=== PATIENT | female | born 1990 | race Native Hawaiian/Other Pacific Islander ===

== ENCOUNTER 2023-11-19 07:45 | Emergency (ER) | payer SELFPAY ==
[2023-11-19] MEDS ORDERED: ETOMIDATE 20 MG/10 ML VIAL IV ONE (07:46)
[2023-11-19] MEDS ORDERED: ROCURONIUM 50 MG/5 ML VIAL IV ONE (07:46)
[2023-11-19 08:13] LABS: Absolute Eosinophils 0.1 K/uL (0-0.5); Absolute Lymphocytes (CBC) 2.1 K/uL (0.7-4.9); Absolute Monocytes 0.5 K/uL (0.1-1.3); Absolute Neutrophil 2.8 K/uL (1.8-8.0); Basophils % 0.5 % (0-1.3); Eosinophils % 1.2 % (0-4.4); Hematocrit 40.2 % (36.0-45.0); Hemoglobin 13.6 g/dL (12.0-15.0); Lymphocytes % 37.9 % (15.3-44.8); MCH 30.2 pg (27.0-35.0); MCHC 33.9 g/dL (32.0-36.0); MCV 89.2 fL (80-100); Monocytes % 8.9 % (3.3-12.3); Neutrophils % 51.5 % (41.7-73.7); Nucleated Red Blood Cells % 0.1 % (0-0); Platelets 285 thou/uL (152-406); RBC Red Blood Cell Count 4.51 M/uL (3.86-4.86); Red Cell Distribution Width 13.1 % (12.1-15.2)
[2023-11-19 08:16] LABS: PT Prothrombin Time 11.1 SECONDS (9.4-12.5); PTT, Activated Partial Thromb 28.3 SECONDS (24.3-36.9); Protime INR 1.01
[2023-11-19 08:39] LABS: ALT/SGPT 38 U/L (13-56); Albumin 3.9 g/dL (3.4-5.0); Alkaline Phosphatase 83 U/L (45-117); Anion Gap 9.3 mEq/L (5.0-15.0); BUN Blood Urea Nitrogen 13 mg/dL (7-18); Bicarbonate 22 mEq/L (21-32); Bilirubin Total 0.3 mg/dL (0.2-1.0); Globulin 3.9 g/dL (2.3-3.5); Glomerular Filtration Rate 91 ml/min (=/>90); Glucose Level 108 mg/dL (74-106); Protein, Total 7.8 g/dL (6.4-8.2); Sodium Level 138 mEq/L (136-145)
[2023-11-19 08:42] LABS: AST/SGOT 24 U/L (15-37); Bilirubin Direct < 0.2 mg/dL (0-0.2); Bilirubin Indirect, Calculated 0.1 mg/dL (0.2-0.8); Potassium 3.3 mEq/L (3.5-5.1)
--- NOTE | 2023-11-19 08:52 | RAD REPORT ---
EXAM DESCRIPTION: RAD - Abdomen Single View - 11/19/2023 8:28 am CLINICAL HISTORY: Device placement nasogastric tube placement FINDINGS: Tip of a nasogastric tube lies 7 centimeters into the stomach
--- NOTE | 2023-11-19 08:53 | RAD REPORT ---
EXAM DESCRIPTION: [place] Single View11/19/2023 8:28 am CLINICAL HISTORY: Device placement endotracheal tube placement IMPRESSION: The most recent film demonstrates an endotracheal tube with its tip 3 centimeters above the level of the aortic arch
[2023-11-19 09:03] LABS: Sqamous Epithelial <5 /HPF (None Seen); Urine Bacteria None Seen /HPF (<20); Urine Bilirubin NEGATIVE (Negative); Urine Blood Negative (Negative); Urine Clarity Clear (Clear); Urine Color Light-Yellow (Yellow); Urine Culture Reflex Order NOT NEEDED; Urine Glucose NEGATIVE (Negative); Urine Ketones 1+ (Negative); Urine Microscopic Reflex YN ORDER UMIC; Urine Mucus 1+ /HPF (None Seen); Urine Nitrite NEGATIVE (Negative); Urine Protein TRACE (Negative); Urine RBC <5 /HPF (None Seen); Urine Urobilinogen 1+ (Normal); Urine WBC <5 /HPF (<5)
--- NOTE | 2023-11-19 09:23 | RAD REPORT ---
EXAM DESCRIPTION: CT - Head Brain Wo Cont - 11/19/2023 8:59 am CLINICAL HISTORY: Unresponsive COMPARISON: none TECHNIQUE: Computed axial tomography of the head was obtained. IV contrast was not requested. All CT scans are performed using dose optimization technique as appropriate and may include automated exposure control or mA/KV adjustment according to patient size. FINDINGS: An intracranial bleed is not seen The ventricles are normal in caliber No significant hypodense areas within the brain visualized No extra-axial fluid collection is noted. Fluid within the sinuses/ mastoids is not seen IMPRESSION: No acute intracranial abnormality is seen If patient's symptoms persist MRI of the brain would be recommended
[2023-11-19 09:46] LABS: Barbiturates NEGATIVE (NEGATIVE); Benzodiazepines NEGATIVE (NEGATIVE); Cocaine NEGATIVE (NEGATIVE); METHAMPHETAM POSITIVE (NEGATIVE); Methadone NEGATIVE (NEGATIVE); Opiates NEGATIVE (NEGATIVE); Phencyclidine NEGATIVE (NEGATIVE); THC Cannibis NEGATIVE (NEGATIVE)
--- NOTE | 2023-11-19 09:51 | EDPHYS ---
Physician Documentation [facility] Name: Ledy Lewis Age: 33 yrs Sex: Female : 1990 Arrival Date: 11/19/2023 Time: 07:45 Bed 4 Private MD: ED Physician Aamir Pierre HPI: 11/18 07:48 This 33 yrs old Female presents to ER via Unassigned with complaints of ec2 unresponsive. 07:48 Patient arrives today unresponsive. Patient reportedly had had several alcoholic ec2 beverages as well as benzodiazepine last night. Found on the ground today, unresponsive, EMS reports to give the patient Narcan 2 mg IN and 2 mg IV with no response. History of opiate abuse as well.. Historical: - Allergies: 07:56 Unable to obtain; ph - PMHx: 07:56 Unable to Obtain; ph - Immunization history:: Adult Immunizations unknown. - Infectious Disease History:: unable to obtain. - Social history:: Smoking status: unknown Patient uses alcohol. ROS: 07:48 Constitutional: as per hpi ec2 Exam: 07:48 Constitutional: GEN: NAD Head: atraumatic Eyes: Midrange pupils Ears: External ears ec2 are normal. CV: regular rate LUNGS: no respiratory distress ABD: non-distended SKIN: no evidence of rashes MSK: no evidence of trauma NEURO: Minimal response to painful stimuli Vital Signs: 07:30 BP 112 / 82; Pulse 89; Resp 10; Pulse Ox 100% on R/A; ph 08:01 BP 122 / 95; Pulse 88; Resp 18; Pulse Ox 100% on ETT vent; ph 08:35 Weight 65 kg; ph 09:47 BP 125 / 83; Pulse 62; Resp 16; Pulse Ox 100% on ETT vent; FiO2 40 %; nj1 10:49 BP 120 / 83; Pulse 62; Resp 16; Pulse Ox 100% on ETT vent; FiO2 40 %; nj1 Procedures: 07:59 Intubation: Intubated orally using # 4 Anais blade with 7.5 mm ETT. was successful ec2 on first attempt. Ventilated with ventilator. Tube secured with ETT haynes Placement verified by CXR, CO2 detector with (+) color change, auscultating bilateral breath sounds, Patient tolerated well. MDM: 07:47 Patient medically screened. ec2 07:48 Data reviewed: vital signs. ED course: Patient arrives today for unresponsive. ec2 Examination remarkable for unresponsive individual was minimally responsive to painful stimuli. My concern is for ability to protect airway, I subsequently decided to urgently intubate the patient. Patient intubated without any issue. Will obtain lab work, drug screen, CT scan of the head. Differential diagnosis includes substance abuse, anemia, electrolyte disturbances.. 08:11 ED course: Initial chest x-ray independently reviewed and interpreted by me, shows high ec2 riding ET tube, I moved with the ET tube from 21 cm to 24 cm in depth, repeat chest x-ray independently reviewed and interpreted by me, shows approximately 3 to 4 cm above the [place].. 08:29 ED course: EKG obtained, independently reviewed and interpreted by me, shows normal ec2 sinus rhythm, rate of 69, no acute ST segment elevations, intervals are nonconcerning.. 08:59 ED course: Tylenol level undetectable, metabolic profile is reassuring, LFTs ec2 nonactionable, CBC reassuring, undetectable, urine testing negative, chest x-ray shows ET tube approximately 3 cm above the aortic arch, abdominal x-ray shows appropriately placed NG tube. Pending CT scan of the head as well as urine drug screen . 09:49 ED course: Urine drug screen positive for methamphetamine. Currently have no ec2 capabilities for pulmonology, will transfer for vent management. 10:35 ED course: I discussed case with ICU physician at [facility] who ec2 agrees accept the patient for transfer. . 11/18 07:48 Order name: Acetaminophen; Complete Time: 08:58 ec2 11/18 07:48 Order name: Basic Metabolic Panel; Complete Time: 08:58 ec2 11/18 07:48 Order name: CBC with Diff; Complete Time: 08:58 ec2 11/18 07:48 Order name: ETOH Level; Complete Time: 08:58 ec2 11/18 07:48 Order name: Hepatic Function; Complete Time: 08:58 ec2 11/18 07:48 Order name: PT-INR; Complete Time: 08:58 ec2 11/18 07:48 Order name: Test, Urine; Complete Time: 08:58 ec2 11/18 07:48 Order name: Ptt, Activated; Complete Time: 08:58 ec2 07/07 07:48 Order name: Salicylate; Complete Time: 09:30 ec2 11/18 07:48 Order name: Urinalysis w/ reflexes; Complete Time: 09:13 ec2 11/18 07:48 Order name: Urine Drug Screen; Complete Time: 09:48 ec2 11/18 07:49 Order name: CXR XRAY; Complete Time: 08:58 eb 11/18 07:50 Order name: CT Head Brain wo Cont; Complete Time: 09:30 ec2 11/18 08:16 Order name: Abdomen Single View; Complete Time: 08:58 EDMS 11/18 07:48 Order name: EKG; Complete Time: 07:48 ec2 11/18 07:48 Order name: EKG - Nurse/Tech; Complete Time: 08:33 ec2 11/18 07:48 Order name: IV Saline Lock; Complete Time: 07:57 ec2 11/18 07:48 Order name: Labs collected and sent; Complete Time: 07:57 ec2 Administered Medications: 07:43 Drug: Etomidate IVP 20 mg IVP once Route: IVP; Site: left antecubital; ph 08:00 Follow up: Response: No adverse reaction ph 07:43 Drug: Rocuronium IVP 70 mg IVP once Route: IVP; Site: left antecubital; ph 08:00 Follow up: Response: No adverse reaction ph 07:43 Drug: NS 0.9% IV 1000 ml IV at 1 bolus Per protocol; 1000 mL bolus Route: IV; Rate: 1 ph bolus; Site: left antecubital; 09:00 Follow up: Response: No adverse reaction; IV Status: Completed infusion; IV Intake: ph 1000ml 08:20 Drug: Propofol IV 5 mcg/kg/min IV at calculated rate See Administration Instructions; ph Standard concentration 1000 mg / 100 mL; Recommended max rate 50 mcg/kg/min; Titrate 2 mcg/kg/min every 5 minutes to achieve goal (see titration policy); Goal parameter RASS score 0 to -2 Route: IV; Rate: calculated rate; Site: right wrist; 08:38 Follow up: Rate change 10 mcg/kg/min ph 08:45 Follow up: Rate change 15 mcg/kg/min ph 09:10 Follow up: Rate change 20 mcg/kg/min ph 09:55 Follow up: Rate change 100 bolus nj1 09:55 Follow up: Rate change 50 mcg/kg/min; Rate increased per Dr James instructions nj1 10:00 Follow up: Response: No adverse reaction; RASS: Light sedation (-2); IV Status: ph Infusion continued upon transfer 11:05 Follow up: Rate change 100 bolus nj1 11:40 Follow up: Rate change 100 bolus nj1 Disposition Summary: 11/19/23 09:50 Transfer Ordered Notes: Transfer Location: [facility] ec2 Reason: Higher level of care ec2 Condition: Stable ec2 Problem: new ec2 Symptoms: have improved ec2 Accepting Physician: transferring doc(11/19/23 12:04) eb Diagnosis - Acute respiratory failure ec2 - Suspected Drug Overdose ec2 Forms: - Medication Reconciliation Form ec2 - SBAR form ec2 Critical care time excluding procedures: 09:49 Critical care time: Bedside Care: 30 minutes, Consultation: 5 minutes. Total time: 35 ec2 minutes Signatures: Dispatcher [employer] Tejal Zepeda RN RN Arielle Souza Edwin, MD MD ec2 Jami Bill RN nj1 Corrections: (The following items were deleted from the chart) 07:49 07:48 ACETAMINOPHEN+C.LAB.BRZ ordered. EDMS EDMS 07:49 07:48 BASIC METABOLIC PANEL+C.LAB.BRZ ordered. EDMS EDMS 07:49 07:48 CBC+H.LAB.BRZ ordered. EDMS EDMS 07:49 07:48 ETHANOL+C.LAB.BRZ ordered. EDMS EDMS 07:49 07:48 HEPATIC FUNCTION+C.LAB.BRZ ordered. EDMS EDMS 07:49 07:48 PROTIME (+INR)+COAG.LAB.BRZ ordered. EDMS EDMS 07:49 07:48 Test, Urine+UC.LAB.BRZ ordered. EDMS EDMS 07:49 07:48 PTT, ACTIVATED+COAG.LAB.BRZ ordered. EDMS EDMS 07:49 07:48 SALICYLATE+C.LAB.BRZ ordered. EDMS EDMS 07:49 07:48 Urinalysis+U.LAB.BRZ ordered. EDMS EDMS 07:49 07:48 URINE DRUG SCREEN+UC.LAB.BRZ ordered. EDMS EDMS 07:51 07:51 Head Brain Wo Cont+CT.RAD.BRZ ordered. EDMS EDMS 09:29 07:48 Suicide Screening ([place]) ordered. ec2 nj1 10:13 09:49 ED course: Urine drug screen positive for methamphetamine. Currently have no ec2 capabilities for pulmonology, will transfer for ventilation requirement.. ec2 12:04 09:50 transferring doc ec2 eb
--- NOTE | 2023-11-19 09:51 | ER ---
Nurse's Notes [facility] Name: Ledy Lewis Age: 33 yrs Sex: Female : 1990 Arrival Date: 11/19/2023 Time: 07:45 Bed 4 Private MD: Diagnosis: Acute respiratory failure;Suspected Drug Overdose Presentation: 11/18 07:30 Ebola Screen: No symptoms or risks identified at this time. Initial Sepsis Screen: Does ph the patient meet any 2 criteria? No. Patient's initial sepsis screen is negative. Does the patient have a suspected source of infection? No. Patient's initial sepsis screen is negative. Risk Assessment: Do you want to hurt yourself or someone else? Patient reports no desire to harm self or others. Onset of symptoms was November 19, 2023. 07:30 Acuity: TONY 1 ph 07:52 Chief complaint: EMS states: Pt found unresponsive on bathroom floor by SO, last seen ph normal approx 2 am, hx of drug use, reports that she drank heavily and took Xanax last night, total 4 mg of Narcan given, VSS, BGL 122, pt minimally responsive to painful stimuli upon arrival to ED. Coronavirus screen: Vaccine status: unable to obtain. 07:52 Method Of Arrival: EMS: [facility] Triage Assessment: 07:35 General: Behavior is unresponsive. Pain: Unable to use pain scale. Patient is ph unresponsive. Neuro: Level of Consciousness is unresponsive, Oriented to none Pupils are PERRLA. Cardiovascular: Capillary refill < 3 seconds in bilateral fingers Patient's skin is warm and dry. Rhythm is sinus rhythm. Respiratory: Airway is patent Respiratory effort is shallow, Respiratory pattern is hypoventilation. GI: Abdomen is non-distended. Derm: Skin is normal, Skin temperature is cool. Historical: - Allergies: 07:56 Unable to obtain; ph - PMHx: 07:56 Unable to Obtain; ph - Immunization history:: Adult Immunizations unknown. - Infectious Disease History:: unable to obtain. - Social history:: Smoking status: unknown Patient uses alcohol. Screenin:43 [facility] ED Fall Risk Assessment (Adult) History of falling in the last 3 months, kc6 including since admission No falls in past 3 months (0 pts) Confusion or Disorientation Yes (5 pts) Intoxicated or Sedated Yes (3 pts) Impaired Gait No (0 pts) Mobility Assist Device Used No (0 pt) Altered Elimination No (0 pt) Score/Fall Risk Level 3 or more points = High Risk. Abuse screen: Denies threats or abuse. Denies injuries from another. Nutritional screening: No deficits noted. Tuberculosis screening: No symptoms or risk factors identified. Assessment: 08:01 General: SEE TRIAGE ASSESSMENT. ph 08:04 Reassessment: ET tube advanced to 24 at the teeth by Dr. Pierre. kc6 09:44 Reassessment:. Reassessment: Patient appears in no apparent distress at this time. nj1 Neuro: Level of Consciousness is unresponsive, Sedated. Respiratory: Airway via oral intubation. 09:44 GI: NGT in place, to suction. nj1 09:44 : [place] in place to gravity drainage. nj1 09:54 Reassessment: Pt exhibiting restlessness, eyes open. nj1 11:48 Reassessment: EMS here to transfer patient, report given to Néstor Trejo EMTP. nj1 Overdose: 08:01 [place] Suicide Severity Screening: "In the past month, have you wished you were kc6 or wished you could go to sleep and not wake up?" unable to obtain at this time as pt is unresponsive "In the past month, have you actually had any thoughts of killing yourself?" unable to obtain at this time as pt is unresponsive "In your lifetime, have you ever done anything, started to do anything, or prepared to do anything to end your life?" unable to obtain at this time as pt is unresponsive. Vital Signs: 07:30 BP 112 / 82; Pulse 89; Resp 10; Pulse Ox 100% on R/A; ph 08:01 BP 122 / 95; Pulse 88; Resp 18; Pulse Ox 100% on ETT vent; ph 08:35 Weight 65 kg; ph 09:47 BP 125 / 83; Pulse 62; Resp 16; Pulse Ox 100% on ETT vent; FiO2 40 %; nj1 10:49 BP 120 / 83; Pulse 62; Resp 16; Pulse Ox 100% on ETT vent; FiO2 40 %; nj1 Vitals: 08:01 Cardiac Rhythm Assessment Sinus rhythm. ph ED Course: 07:30 Arm band placed on. kc6 07:40 Maintain EMS IV. Dressing intact. Good blood return noted. Site clean \\T\\ dry. Gauge \\T\\ sheryl 6 site: 20G LAC. 07:43 Assisted provider with intubation using 7.5 mm ETT via oral route. ET tube secured at kc6 21cm at the teeth. Set up intubation tray. Intubated by Aamir Pierre MD Placement verified by CO2 detector w/ + color change, auscultating bilateral breath sounds, End-tidal CO2 montioring CXR, Patient tolerated well. 07:43 Inserted saline lock: 20 gauge in right hand, using aseptic technique. Blood collected. kc6 07:43 Patient has correct armband on for positive identification. Placed in gown. Bed in low kc6 position. Call light in reach. Side rails up X2. radiation monitor on. Pulse ox on. NIBP on. Warm blanket given. Pillow given. 07:47 Patient arrived in ED. ec2 07:47 Aamir Pierre MD is Attending Physician. ec2 07:50 NGT: inserted 16 Fr. via left nare. verified placement of air over stomach, verified kc6 return of gastric contents, Placement verified by X-ray, to intermittent suction. Returned gastric contents. Patient tolerated well. 07:52 Tejal Morales, RN is Primary Nurse. ph 07:56 Triage completed. ph 08:20 [place] cath inserted, using sterile technique, 18 Fr., by wv, balloon inflated, to kc6 gravity drainage, clamped. urine specimen collected. returned clear yellow urine. Patient tolerated well. 08:29 CXR XRAY In Process Unspecified. EDMS 08:30 Abdomen Single View In Process Unspecified. EDMS 09:01 CT Head Brain wo Cont In Process Unspecified. EDMS 09:50 initiated a transfer with Nga from the [facility] Transfer center. eb 10:14 connected the electrician underground physicians and surgeons for [facility] with Dr. Pierre for patient eb transfer consultation. 10:17 administrative approval given by Nga Gao Rn/ patient has been accepted to [facility] rom 210/ Dr. Luis Hansen as accepted the patient in transfer/ report to be called to [phone]. 12:04 Patient transferred, IV remains in place. kc6 Restraints: 09:15 Non-Violent Restraint: Order obtained. Initiated on November 19, 2023 at 09:15 Staff ph present \\T\\ role on initiation: Siria Day Unable to provide restraint education. Pt intubated and sedated. Actions/Behavior observed: has impaired decision making, has decreased level of consciousness, unable to follow instructions, Clinical justification for use: airway protection, line protection. 09:44 Non-Violent Restraint: Assuming responsibility of patient is restraints. nj1 11:15 Non-Violent Restraint: Mental status: patient asleep, Circulation: Warm/dry, capillary nj1 refill WNL Skin integrity: Intact, healthy with good turgor Signs of injury related to restraint: No injuries noted. Range of Motion (ROM): patient asleep. Hydration/Food: not appropriate at this time Elimination/Hygiene: with urinary catheter, Restraint status: Side rails up Continued. Soft wrist restraint (Right) Continued. Soft wrist restraint (Left) Continued. Criteria to discontinue Restraint not met. Restraint continued Cognition: Unable to assess. Administered Medications: 07:43 Drug: Etomidate IVP 20 mg IVP once Route: IVP; Site: left antecubital; ph 08:00 Follow up: Response: No adverse reaction ph 07:43 Drug: Rocuronium IVP 70 mg IVP once Route: IVP; Site: left antecubital; ph 08:00 Follow up: Response: No adverse reaction ph 07:43 Drug: NS 0.9% IV 1000 ml IV at 1 bolus Per protocol; 1000 mL bolus Route: IV; Rate: 1 ph bolus; Site: left antecubital; 09:00 Follow up: Response: No adverse reaction; IV Status: Completed infusion; IV Intake: ph 1000ml 08:20 Drug: Propofol IV 5 mcg/kg/min IV at calculated rate See Administration Instructions; ph Standard concentration 1000 mg / 100 mL; Recommended max rate 50 mcg/kg/min; Titrate 2 mcg/kg/min every 5 minutes to achieve goal (see titration policy); Goal parameter RASS score 0 to -2 Route: IV; Rate: calculated rate; Site: right wrist; 08:38 Follow up: Rate change 10 mcg/kg/min ph 08:45 Follow up: Rate change 15 mcg/kg/min ph 09:10 Follow up: Rate change 20 mcg/kg/min ph 09:55 Follow up: Rate change 100 bolus nj1 09:55 Follow up: Rate change 50 mcg/kg/min; Rate increased per Dr James instructions [facility] 10:00 Follow up: Response: No adverse reaction; RASS: Light sedation (-2); IV Status: ph Infusion continued upon transfer 11:05 Follow up: Rate change 100 bolus nj1 11:40 Follow up: Rate change 100 bolus nj1 Medication: 08:00 VIS not applicable for this client. ph Intake: 09:00 IV: 1000ml; Total: 1000ml. ph Outcome: 09:50 ER care complete, transfer ordered by . ec2 10:54 Transferred by ground EMS to [facility], Transfer form completed. nj Note: Report called to nurse Jad 10:54 Condition: stable nj1 10:54 Discharge instructions given to significant other, Instructed on the need for transfer, 12:04 Patient left the ED. eb Signatures: Dispatcher [employer] Tejal Zepeda RN RN Arielle Roldan Kaitlyn, RN RN kc6 Jami Bill RN RN nj Aamir Pierre MD MD ec2 Corrections: (The following items were deleted from the chart) 08:38 08:37 Propofol IV 325 mcg/min IV at calculated rate in right wrist ph ph 09:59 09:44 Reassessment: Patient appears in no apparent distress at this time. [place] [id number] 11:10 11:08 Non-Violent Restraint: Assuming responsibility of patient is restraints. [place] [id number] 11:12 11:10 Non-Violent Restraint: [place] [id number] 16:28 08:35 Rate change 15 mcg/kg/min ph ph
[2023-11-19] MEDS ORDERED: propofoL 1,000 MG/100 ML VIAL IV ONE (11:01)
[2023-11-19 12:13] VITALS: BP 120/83; O2SAT 100
--- NOTE | 2023-11-21 09:03 | EKG ---
Test Date: 2023-11-19 Test Time: 08:25:18 [employer]: PH MEASUREMENT RESULTS: Intervals: Rate: 69 TX: 130 QRSD: 94 QT: 428 QTc: 458 [place]: P: 77 TX: 130 QRS: 70 T: 39 INTERPRETIVE STATEMENTS: Normal sinus rhythm Normal ECG No previous ECG available for comparison Electronically Signed On 11-21-23 09:02:48 CDT by Juan Loyola
== END 2023-11-19 12:04 | disposition short-term general hospital (02) ==
LOC: EDBD 07:45 → ER 07:45
DX: J96.00 Acute respiratory failure, unspecified whether with hypoxia or hypercapnia (principal)
CPT/HCPCS: 31500; 36415; 51702; 70450; 71045; 74018; 80048; 80076; 80143; 80179; 80307; 81001; 81025; 82077; 85025; 85610; 85730; 93005; 94002; 96361; 96365; 96366; 96375; 99291; 99292; J2704